=== PATIENT | male | born 1990 ===

== ENCOUNTER 2018-07-10 09:34 | Emergency (ER) | payer MEDICARE ==
[2018-07-10 09:52] VITALS: BMI 28.5
--- NOTE | 2018-07-10 10:50 | C.PDOC ---
History Of Present Illness 27-year-old male with a PMHx of hypopituitarism, presents accompanied by family for evaluation s/p syncopal episode that occurred last night around 7:30pm. Patient states yesterday evening he developed a headache, which was typical for him, and he took Fioricet and went to sleep. Patient was then woken to receive his testosterone injection, and the next thing he knew he was on the ground. Patient is unclear regarding the details of the incident. Per father, he woke the patient and gave injection. He turned around to go to another room and when he came back he saw patient unconscious, lying on the ground, for approximately 2 minutes. Upon waking, he notes the patient seemed confused and did not remember what happened. He denies any seizure activity or urinary incontinence. Per mother, the patient had a history of seizures during childhood but has not had any for several years. Family did not bring patient right away as he wanted to rest. Currently he denies any nausea, vomiting, dizziness, confusion, visual changes, weakness or numbness. Patient still has slight posterior headache. States he may have hit his head, but he cannot remember. Patient is a poor historian. Time Seen by Provider: 07/10/18 10:03 Chief Complaint (Nursing): Syncope History Per: Patient History/Exam Limitations: no limitations Onset/Duration Of Symptoms: Mins Current Symptoms Are (Timing): Gone Activity At Onset Of Symptoms: Standing Associated Symptoms Preceding Syncopal Episode: No Predromal Symptoms (Sudden Onset) Fall Associated With With Symptoms: Yes, No Injury As Result Of Fall Past Medical History Reviewed: Historical Data, Nursing Documentation, Vital Signs Vital Signs: Last Vital Signs Temp Pulse 87 07/10/18 09:52 Resp 18 07/10/18 09:52 BP 131/95 H 07/10/18 09:52 Pulse Ox 100 07/10/18 09:52 - Medical History Other PMH: Hypopituitarism Surgical History: No Surg Hx Family History: States: Unknown Family Hx - Social History Hx Tobacco Use: No Hx Alcohol Use: No Hx Substance Use: No Review Of Systems Constitutional: Negative for: Fever, Chills Eyes: Negative for: Vision Change Cardiovascular: Negative for: Chest Pain Respiratory: Negative for: Shortness of Breath Gastrointestinal: Negative for: Nausea, Vomiting, Diarrhea Musculoskeletal: Negative for: Neck Pain, Back Pain Skin: Negative for: Lesions, Bruising Neurological: Positive for: Headache, Other (+ fall with LOC). Negative for: Weakness, Numbness, Seizures, Dizziness Physical Exam - Physical Exam Appears: Well, Non-toxic, No Acute Distress Skin: Warm, Dry, No Rash Head: Atraumatic, Normacephalic, No Tenderness (to scalp), No Swelling (or hematoma), No Laceration Eye(s): bilateral: Normal Inspection, PERRL, EOMI Oral Mucosa: Moist Tongue: Normal Appearing, No Bite Neck: Normal ROM, No Midline Cervical Tenderness, No Paracervical Tenderness, Supple Chest: Symmetrical Cardiovascular: Rhythm Regular, No Murmur Respiratory: Normal Breath Sounds, No Rales, No Rhonchi, No Wheezing Gastrointestinal/Abdominal: Bowel Sounds (active), Soft, No Tenderness, No Guarding Extremity: Bilateral: Atraumatic, Normal Color And Temperature, Normal ROM Neurological/Psych: Oriented x3, Normal Speech, Normal Cranial Nerves, Other (No focal deficits) Gait: Steady ED Course And Treatment - Laboratory Results Result Diagrams: 07/10/18 11:09 07/10/18 11:09 ECG: Interpreted By Me ECG Rhythm: Sinus Rhythm ECG Interpretation: Normal Rate From EC O2 Sat by Pulse Oximetry: 100 (RA) Pulse Ox Interpretation: Normal - CT Scan/US Head CT Other Rad Studies (CT/US): Read By Radiologist, Radiology Report Reviewed CT/US Interpretation: FINDINGS: HEMORRHAGE: No intracranial hemorrhage. BRAIN: No mass effect or edema. No atrophy or chronic microvascular ischemic changes. VENTRICLES: No hydrocephalus. CALVARIUM: Unremarkable. PARANASAL SINUSES: Unremarkable as visualized. No significant inflammatory changes. MASTOID AIR CELLS: Unremarkable as visualized. No inflammatory changes. OTHER FINDINGS: None. IMPRESSION: No acute intracranial pathology identified. Medical Decision Making Medical Decision Making: Impression: Syncope Plan: Patient assessed and examined. Orders placed in for blood work, EKG, and CT Head. Urine collected and sent to lab for analysis. Progress: CT is negative. Labs reviewed, showing no acute changes. Patient remained afebrile alert and oriented with stable vital signs during ER evaluation. Patient reports improvement of symptoms. Patient feels comfortable going home and will be discharged, accompanied by parents. Patient given follow up instructions. Instructed to return to ER if symptoms worsen or new symptoms arise. Disposition - Disposition Referrals: Bunny Alba MD [Staff Provider] - Disposition: HOME/ ROUTINE Disposition Time: 13:20 Condition: STABLE Additional Instructions: Follow up with your primary medical doctor or clinic in 2-5 days for further evaluation. Take your usual medications as prescribed. Return to the emergency department at any time if symptoms persist or worsen. Instructions: Syncope (Fainting) Forms: [employer] (Bulgarian) - POA Present On Arrival: None - Clinical Impression Clinical Impression: Syncope - PA / PHYSICAL SCIENCE TECHNICIAN / Resident Statement MD/DO has reviewed & agrees with the documentation as recorded. - Scribe Statement The provider has reviewed the documentation as recorded by the Scribe Madeline Jeffery All medical record entries made by the Israelibshameka were at my direction and personally dictated by me. I have reviewed the chart and agree that the record accurately reflects my personal performance of the history, physical exam, medical decision making, and the department course for this patient. I have also personally directed, reviewed, and agree with the discharge instructions and disposition.
--- NOTE | 2018-07-10 11:09 | CT ---
Date of service: 07/10/2018 PROCEDURE: CT HEAD WITHOUT CONTRAST. HISTORY: seizure COMPARISON: Brain MRI without IV contrast performed 11/18/16 TECHNIQUE: Axial computed tomography images were obtained through the head/brain without intravenous contrast. Radiation dose: Total exam DLP = 1227.83 mGy-cm. This CT exam was performed using one or more of the following dose reduction techniques: Automated exposure control, adjustment of the mA and/or kV according to patient size, and/or use of iterative reconstruction technique. FINDINGS: HEMORRHAGE: No intracranial hemorrhage. BRAIN: No mass effect or edema. No atrophy or chronic microvascular ischemic changes. VENTRICLES: No hydrocephalus. CALVARIUM: Unremarkable. PARANASAL SINUSES: Unremarkable as visualized. No significant inflammatory changes. MASTOID AIR CELLS: Unremarkable as visualized. No inflammatory changes. OTHER FINDINGS: None. IMPRESSION: No acute intracranial pathology identified.
[2018-07-10 11:18] LABS: BASO % 0.6 % (0.0-2.0); EOS # 0.1 K/uL (0.0-0.7); EOS % 1.6 % (0.0-4.0); HEMOGLOBIN 13.7 g/dL (12.0-18.0); LYMPH # 2.5 K/uL (1.0-4.3); LYMPH % 43.2 % (20.0-40.0); MEAN CELL VOLUME 92.6 fL (80.0-94.0); MEAN CORPUSCULAR HEMOGLOBIN 30.7 pg (27.0-31.0); MEAN CORPUSCULAR HGB CONC 33.1 g/dL (33.0-37.0); MEAN PLATELET VOLUME 8.9 fL (7.2-11.7); MONO # 0.4 K/uL (0.0-0.8); MONO % 6.5 % (0.0-10.0); NEUT # 2.7 K/uL (1.8-7.0); NEUT % 48.1 % (50.0-75.0); NRBC % 0.1 % (0.0-2.0); RBC 4.46 Mil/uL (4.40-5.90); WHITE BLOOD COUNT 5.7 K/uL (4.8-10.8)
[2018-07-10] MEDS ORDERED: Sodium Chloride 0.9% 1,000 ML IV ONE (11:43)
[2018-07-10 12:01] LABS: ALB/GLOB RATIO 1.6 (1.0-2.1); ALT/SGPT 36 U/L (21-72); AST/SGOT 46 U/L (17-59); BLOOD UREA NITROGEN 12 mg/dL (9-20); CALCIUM 9.1 mg/dl (8.6-10.4); GFR NON-AFRICAN AMERICAN > 60
[2018-07-10] MEDS ORDERED: Sodium Chloride 0.9% 1,000 ML ONE (12:12)
[2018-07-10 12:37] LABS: SQUAMOUS EPITHIAL < 1 /hpf (0-5); URINE BILIRUBIN NEGATIVE (NEGATIVE); URINE BLOOD NEGATIVE (NEGATIVE); URINE CLARITY Clear (Clear); URINE COLOR Yellow (YELLOW); URINE GLUCOSE (UA) NORMAL (Normal); URINE LEUKOCYTE ESTERASE NEG Leu/uL (Negative); URINE PROTEIN NEGATIVE (NEGATIVE)
[2018-07-10 13:16] LABS: BENZODIAZEPINES, UR NEGATIVE (NEGATIVE); OPIATES, UR NEGATIVE (NEGATIVE); PHENCYCLIDINE, UR NEGATIVE (NEGATIVE)
[2018-07-10 13:24] VITALS: O2SAT 100
[2018-07-10 13:50] LABS: BARBITURATES, UR POSITIVE (NEGATIVE)
[2018-07-10 13:51] VITALS: BP 134/97; PULSE 73; RESP 20; TEMP 99.5
--- NOTE | 2018-07-11 12:43 | CARD ---
APPROVED REPORT Date of service: 07/10/2018 EKG Measurement Heart [id number] <Conclusion> Normal sinus rhythm Normal ECG
== END 2018-07-10 13:52 | disposition home or self-care (01) ==
LOC: C.ER 09:34
DX: R55 Syncope and collapse (principal)
CPT/HCPCS: 70450; 80053; 81001; 82948; 85025; 93005; 96360; 96361; 99285; G0480; J7030

== ENCOUNTER 2018-07-23 06:10 | Day surgery (SDC) | payer MEDICARE | END 2018-07-23 08:45 | disposition home or self-care (01) | LOC: C.CATHLAB 06:10 | PROVIDERS: ATTEND Internal Medicine | DX: Z53.8 Procedure and treatment not carried out for other reasons (principal); R42 Dizziness and giddiness ==

== ENCOUNTER 2018-07-27 07:35 | Day surgery (SDC) | payer MEDICARE ==
--- NOTE | 2018-07-28 04:54 | CARDCATH ---
PROCEDURE DATE: 07/27/2018 REFERRING PHYSICIAN: Bunny Alba MD. SUPERCHARGER MECHANIC: Bunny Alba MD. INDICATION: Syncope. DESCRIPTION OF THE PROCEDURE: The patient was brought to the analytical lab analyst and was put on the tilt table. The test was performed in the usual routine protocol. Blood pressure and heart rate response were monitored at 30 degrees for 5 minutes and 60 degrees for 20 minutes. There was a less than 20 mmHg, a slow dropping blood pressure and less than 20 beats, a slow drop in heart rate. The patient tolerated the procedure well. The patient was asymptomatic throughout the test. IMPRESSION: Normal blood pressure and heart rate response to tilt table test. The patient was asymptomatic throughout the test. Bunny Alba MD
== END 2018-07-27 09:30 | disposition home or self-care (01) ==
LOC: C.CATHLAB 07:35
PROVIDERS: ATTEND Internal Medicine
DX: R42 Dizziness and giddiness (principal); R55 Syncope and collapse